=== PATIENT | female | born 1975 | race Caucasian/White ===

== ENCOUNTER 2021-04-21 00:31 | Emergency (ER) | payer OTHER ==
[~2021-04-21] VITALS: Ht 170.2 cm; Wt 100.0 kg
[2021-04-21] MEDS ORDERED: KETOROLAC 60MG/2ML VIAL IM ONE (05:30)
[2021-04-21] MEDS ORDERED: TOPUD PO (06:00)
[2021-04-21 06:25] VITALS: BP 140/85
== END 2021-04-21 06:28 | disposition home or self-care (01) ==
LOC: ER 00:31
DX: M25.512 Pain in left shoulder (principal)
CPT/HCPCS: 73030; 81025; 96372; 99283; J1885